=== PATIENT | female | born 1995 | race Caucasian/White ===

== ENCOUNTER 2017-06-28 04:08 | Observation (INO) | payer SELFPAY ==
[~2017-06-28] VITALS: Ht 162.6 cm; Wt 58.3 kg
--- NOTE | ~2017-06-28 | CON ---
[facility]GE[facility] 22 Y [address] ROOM: [place] [address] LOCATION: [facility] ADMIT DATE: 06/28/2017 Consultation DISCHARGE DATE: FAMILY PHYSICIAN: Physician, Unknown ATTENDING PHYSICIAN: Florencia Gaines DATE OF CONSULTATION: 06/28/2017 REFERRING PHYSICIAN: Florencia Gaines MD REASON FOR CONSULTATION: Post-tonsillectomy hemorrhage. HISTORY OF PRESENT ILLNESS: Sergio Salinas had a tonsillectomy [address] Valentine in [place] for chronic tonsillitis. She started bleeding this evening about 2 hours ago. She feels that it is going on the left side. She has not had any emesis. She has coughed up about a cup full of blood, which is currently stopped. Her postoperative course has otherwise been unremarkable. She has not had any history of bleeding problems. She is also a nonsmoker. PAST MEDICAL HISTORY: Significant for a VAT surgery earlier this year for infections on both sides of her lung. PAST SURGICAL HISTORY: Tonsillectomy and VAT surgery. MEDICATIONS: 1. Ibuprofen. 2. Tylenol No. 3. ALLERGIES: OMNICEF AND PREDNISONE. SOCIAL HISTORY: She is in college. Nonsmoker. Occasional drinker. FAMILY HISTORY: No history of bleeding disorders. REVIEW OF SYSTEMS: Comprehensive review of systems was performed and negative except as noted per HPI. PHYSICAL EXAMINATION: PATIENT'S NAME: SERGIO SALINAS [facility] AGE: 22 Y [address] ROOM: [place] [address] LOCATION: [facility] ADMIT DATE: 06/28/2017 Consultation DISCHARGE DATE: FAMILY PHYSICIAN: Physician, Unknown ATTENDING PHYSICIAN: Florencia Gaines VITAL SIGNS: Normotensive but tachycardic. GENERAL: A pleasant 22-year-old, resting comfortably, no airway distress. FACE: Face is symmetric. No masses over the salivary glands. EARS: External ears are normal. EYES: Pupils are equal, round, and reactive to light. Extraocular muscles are intact. NOSE: External nose is normal. No epistaxis. MOUTH: Teeth are healthy. Tongue is midline and mobile. Clot over bilateral tonsillar fossa. NECK: No cervical lymphadenopathy. Trachea is midline. NEUROLOGIC: Cranial nerves 2 through 12 grossly intact. LABORATORY DATA: Hemoglobin 12. ASSESSMENT: Post-tonsillectomy hemorrhage. PLAN: Control of the tonsillar bleed was performed today in the ER. We gave the patient 2 disposition options, either going home with her mother or staying in the hospital for the day to make sure that the bleeding does not recur. CHITO BEYER, ENT RESIDENT PGY5 FOR MD ARTI MAHER/becky /[id number] d: 06/28/17 0716 t: 07/20/17 1136, CONSULTATION REPORT
--- NOTE | ~2017-06-28 | ER ---
PATIENT'S NAME: SERGIO SALINAS [facility] AGE: 22 Y [address] ROOM: [place] [address] LOCATION: [facility] ADMIT DATE: 06/28/2017 ER/Outpatient Report DISCHARGE DATE: FAMILY PHYSICIAN: PHYSICIAN, UNKNOWN ATTENDING PHYSICIAN: SANDRA SILVERIO HISTORY OF PRESENT ILLNESS: This is a 22-year-old female, who presents today with bleeding status post tonsillectomy. She had her tonsillectomy approximately 7 days ago, done in [place]. She says that she woke up and her throat was hurting, so she took an ibuprofen. Then, she spit up some blood and then it bled a lot. She says at least a cup of blood and EMS at the scene said "looks like a small sacrifice has been made." Bleeding has since stopped and the patient says she feels embarrassed that she thinks she may have overreacted, but she has no other complaints at this time, just mild blood in the back of her throat, but she says she is not bleeding like she did before. No other complaints at this time. PAST MEDICAL HISTORY: Includes history of staph infection. PAST SURGICAL HISTORY: VATS and tonsillectomy. SOCIAL HISTORY: She does not smoke, drink or use any drugs. MEDICATIONS: 1. Ibuprofen. 2. Tylenol. 3. Hydrocodone. 4. control implant. 5. Omnicef. 6. Prednisone. REVIEW OF SYSTEMS: Reviewed by me and negative with the exception of those discussed in the HPI. PHYSICAL EXAMINATION: GENERAL: The patient appears anxious, but she is speaking in full sentences. She is not actively vomiting blood. She does have blood coming out of her mouth. She is protecting her airway. VITAL SIGNS: Blood pressure 127/67, heart rate 114, respiratory rate 18, temperature 97.7, saturations are 98% on room air. HEENT: In her throat, she has bleeding appears to be coming from mid pole of PATIENT'S NAME: SERGIO SALINAS [facility] AGE: 22 Y [address] ROOM: [place] [address] LOCATION: [facility] ADMIT DATE: 06/28/2017 ER/Outpatient Report DISCHARGE DATE: FAMILY PHYSICIAN: PHYSICIAN, UNKNOWN ATTENDING PHYSICIAN: SANDRA SILVERIO both tonsils. It is a fresh blood. There is a clot formation on both sides. Does not appear to have any active bleeding at this time. HEART: Her heart rate is tachycardic. LUNGS: Her lungs sounds are clear. ABDOMEN: Soft, nontender, nondistended. EMERGENCY ROOM COURSE: We checked H and H here and I called ENT, it is Dr. Silverio with Dr. Mane. They both came to see the patient. They were able to cauterize it. They will be admitting the patient for daytime observation. She is admitted in stable condition. IMPRESSION: Bleeding posttonsillectomy. MD BRUNILDA BURGOS/becky /[id number] d: t: 06/28/17 0957, OUTPATIENT REPORT
--- NOTE | ~2017-06-28 | OR ---
PATIENT'S NAME: SERGIO SALINAS [facility] AGE: 22 Y [address] ROOM: [place] [address] LOCATION: [facility] [place] ADMIT DATE: 06/28/2017 OR/Procedure Report DISCHARGE DATE: FAMILY PHYSICIAN: PHYSICIAN, UNKNOWN ATTENDING PHYSICIAN: SANDRA REEVES SURGEON: Sandra Reeves MD [employer] OPERATOR: Dr. Chito Beyer. DATE OF PROCEDURE: 06/28/2017 PROCEDURE: Control of post-tonsillectomy hemorrhage. ANESTHESIA: Local anesthesia. BLOOD LOSS: 30 mL. PROCEDURE DETAILS: Informed written consent was obtained from the patient for control of tonsillar hemorrhage. The area was sprayed with Cetacaine topical numbing spray. Tonsillar fossa was then injected with 1% lidocaine with 1:100,000 parts epinephrine. The clot was suctioned clear and a bleeding vessel in the mid pole of the left tonsillar fossa could be identified. This was controlled using suction cautery. Her mouth was then gargled and cleaned with no evidence of other bleeding. This completed the procedure. All counts were correct. CHITO BEYER, ENT RESIDENT PGY5 FOR MD Arie MAHERY/lizbethl /[id number] d: 06/28/17 0721 t: 07/20/17 1138, OPERATIVE SUMMARY
[2017-06-28 04:53] LABS: HEMATOCRIT 35.3 % (33.0-46.0); HEMOGLOBIN 12.6 g/dL (11.0-15.0)
[2017-06-28] MEDS ORDERED: CHILDREN'S100 MG/5 M PO (09:03)
[2017-06-28] MEDS ORDERED: PROMETH-CODEIN 65 ML PO (09:04)
[2017-06-28] MEDS ORDERED: AMOXICILLI250 MG/51 PO (09:05)
[2017-06-28] MEDS ORDERED: LORTAB ELIXI15 ML/UD PO (09:05)
--- NOTE | 2017-06-28 09:37 | NUR ---
Admission note: Patient is admitted to floor for short stay/observation for status post tonsillectomy bleeding. Pt had tonsils removed last Monday in [place]. Had been doing fine until this morning about 0300 when her left side of throat started bleeding. Presented to ER and that area was cauterized. Arrived at floor at 0715. No signs of bleeding in throat at this time. Patient is on soft diet, given ice chips and water. No IV access is needed at this time. Mother is at bedside. VSS, Temp is 99.1. Pt states is just very tired. Denies needing anything for pain at this time. Will continue to montior for signs of bleeding.
--- NOTE | 2017-06-28 10:24 | NUR ---
1000 Met with mom at patient's bedside. Introduced myself and explained my role with the CM department. Per mom patient had a tonsilectomy approximately one week ago and developed bleeding yesterday. Mom states patient lives with her boyfriend here in [place]. The plan is for her to discharge to home with her boyfriend once medically cleared. Mom states she will stay here in [place] with her if needed, but she does not anticipate patient needing her to stay. Patient normally sees Dr. Madison Stiles in [place]. No other needs at this time. Will continue to follow and offer supports.
[2017-06-28] MEDS ORDERED: HYDROCODON-ACE473 ML PO (15:19)
--- NOTE | 2017-06-28 16:07 | NUR ---
Significant event: Patient is alert and oriented. VSS. on room air. No IV access. Possibly home today. Pt had norco 1 tab at 1200 with relief. Did have rice for lunch and had small amount of bleeding after that. Did provide ice chips and ice to neck. When rechecked the bleeding has stopped. No complaints of nausea. Mother at bedside. Cooperative with cares.
--- NOTE | 2017-06-28 17:56 | NUR ---
DISCHARGE: D: ORDERS RECEIVED FOR THE PATIENT TO BE DISCHARGED TO HOME TODAY. I: DISMISSAL INSTRUCTIONS WERE PREPARED AND REVIEWED WITH THE PATIENT, HER MOTHER AND SIGNIFICANT OTHER VIRTUALLY. THE FOLLOWING INFORMATION WAS DISCUSSED INCLUDING [place] TEACHING SHEETS PROVIDED: DISCHARGE INSTRUCTIONS TONSILLECTOMY, NORCO, AND PREVENTING DVT. REVIEWED NEW PRESCRIPTIONS AND SIDE EFFECTS. R: THE PATIENT AND FAMILY BOTH VERBALIZED UNDERSTANDING OF THE DISMISSAL EDUCATION AT THE TIME OF TEACHING WITH NO FURTHER QUESTIONS. P: THE ABOVE INFORMATION WAS SHARED WITH THE PRIMARY NURSE AND THE CHARGE NURSE THAT THE PATIENT DISMISSAL EDUCATION WAS COMPLETED. THE PATIENT IS READY FOR DISCHARGE TO THE FRONT DOOR BY NURSING STAFF TODAY.
[2017-06-28] MEDS ORDERED: NORCO 5-325 TA1 EACH PO (17:58)
--- NOTE | 2017-06-28 19:16 | NUR ---
Discharge summary: Patient is alert and oriented. VSS. on room air. Pt ate supper, no bleeding noted. Patient given copies of dismissal instructions, prescriptions and education. Reinforced that Dr changed her [place] to pills and that she should not take the liquid and pills. Verbalizes understanding. Patient was wheeled to main [place] doors.
== END 2017-06-28 19:07 | disposition disaster alternative care site (69) ==
LOC: GMED 04:08 → GMSU 06:06
PROVIDERS: Emergency Medicine; ADMIT Otolaryngology
PROC: 0W337ZZ Control Bleeding in Oral Cavity and Throat, Via Natural or Artificial Opening (ICD-10-PCS; principal; 2017-06-28)
DX: K91.840 Postprocedural hemorrhage of a digestive system organ or structure following a digestive system procedure (principal); Z79.899 Other long term (current) drug therapy; Z79.891 Long term (current) use of opiate analgesic; Z88.8 Allergy status to other drugs, medicaments and biological substances
CPT/HCPCS: G0378